=== PATIENT | female | born 1995 | race Asian ===

== ENCOUNTER 2020-03-18 01:17 | Emergency (ER) | payer BC, SELFPAY ==
[~2020-03-18] VITALS: Ht 162.6 cm; Wt 49.9 kg
[2020-03-18 01:18] VITALS: Ht 162.6 cm; Wt 49.9 kg
[2020-03-18 04:06] VITALS: BP 108/62
== END 2020-03-18 04:06 | disposition home or self-care (01) ==
LOC: ED 01:17
DX: R50.9 Fever, unspecified (principal); Z20.828 Contact with and (suspected) exposure to other viral communicable diseases
CPT/HCPCS: Q0092; U0003